=== PATIENT | female | born 1990 | race Caucasian/White ===

== ENCOUNTER 2018-11-09 12:14 | Inpatient (IN) | payer OTHER ==
[2018-11-09] MEDS ORDERED: ZOLPIDEM 5 MG TAB PO (14:00)
[2018-11-09] MEDS ORDERED: NACL 0.9% 3 ML SYG IV (14:00)
[2018-11-09] MEDS: SOD CHLORIDE 0.9% 1,000 ML IV (14:29)
[2018-11-09] MEDS ORDERED: KETOROLAC 15 MG INJ IV (15:30)
[2018-11-09] MEDS: FAMOTIDINE 20 MG INJ IV (21:54)
[2018-11-10] MEDS: SOD CHLORIDE 0.9% 1,000 ML IV ×3 (03:19→16:24)
[2018-11-10 06:15] LABS: ADD MAN DIFF? NO
[2018-11-10 06:29] LABS: WHITE BLOOD COUNT 2.8 10^3/ul (4.8-10.8)
[2018-11-10 06:29] LABS: BASOPHILS % 0.7 % (0.0-2.0); EOSINOPHILS % 1.4 % (0.0-7.0); HEMATOCRIT 37.7 % (37.0-47.0); HEMOGLOBIN 12.4 g/dl (12.0-16.0); LYMPHOCYTES # 1.3 10^3/ul (0.8-2.9); LYMPHOCYTES % 45.3 % (15.0-51.0); MEAN CORPUSCULAR HEMOGLOBIN 28.7 pg (29.0-33.0); MEAN CORPUSCULAR HGB CONC 32.9 g/dl (32.0-37.0); MEAN CORPUSCULAR VOLUME 87.3 fl (82.0-101.0); MEAN PLATELET VOLUME 11.4 fl (7.4-10.4); MONOCYTE # 0.4 10^3/ul (0.3-0.9); MONOCYTES % 14.4 % (0.0-11.0); NEUTROPHIL # 1.1 10^3/ul (1.6-7.5); NEUTROPHILS % 38.2 % (39.0-77.0); PLATELET COUNT 222 10^3/UL (140-415); RED BLOOD COUNT 4.32 10^6/ul (4.20-5.40); RED CELL DISTRIBUTION WIDTH 13.1 % (11.5-14.5)
[2018-11-10 06:37] LABS: HEMOGLOBIN A1C 5.1 % (0-5.9)
[2018-11-10 06:47] LABS: ALANINE AMINOTRANSFERASE 572 IU/L (13-69); ALBUMIN 3.5 g/dl (3.3-4.9); ALBUMIN/GLOBULIN RATIO 0.94; ALKALINE PHOSPHATASE 260 IU/L (42-121); ANION GAP 9 (5-13); ASPARTATE AMINO TRANSFERASE 719 IU/L (15-46); BILIRUBIN,INDIRECT 0.8 mg/dl (0-1.1); BILIRUBIN,TOTAL 1.4 mg/dl (0.2-1.3); BLOOD UREA NITROGEN 7 mg/dl (7-20); CALCIUM 8.8 mg/dl (8.4-10.2); CARBON DIOXIDE 24 mmol/L (21-31); CHLORIDE 110 mmol/L (97-110); CREATININE 0.58 mg/dl (0.44-1.00); Estimated GFR > 60 mL/min (>60); GLUCOSE 86 mg/dl (70-220); PHOSPHORUS 3.9 mg/dl (2.5-4.9); POTASSIUM 3.9 mmol/L (3.5-5.1); SODIUM 143 mmol/L (135-144); TOTAL PROTEIN 7.2 g/dl (6.1-8.1)
[2018-11-10] MEDS: FAMOTIDINE 20 MG INJ IV ×2 (08:09→20:28)
[2018-11-10] MEDS: ACETAMINOPHEN 325 MG TAB PO (11:27)
[2018-11-10] MEDS: ONDANSETRON 4 MG TAB PO (13:57)
[2018-11-11] MEDS: SOD CHLORIDE 0.9% 1,000 ML IV ×3 (02:07→23:19)
[2018-11-11 05:22] LABS: ADD MAN DIFF? NO
[2018-11-11 05:24] LABS: WHITE BLOOD COUNT 4.7 10^3/ul (4.8-10.8)
[2018-11-11 05:24] LABS: BASOPHILS % 0.2 % (0.0-2.0); EOSINOPHILS # 0.1 10^3/ul (0.0-0.5); EOSINOPHILS % 1.1 % (0.0-7.0); HEMATOCRIT 36.2 % (37.0-47.0); HEMOGLOBIN 11.9 g/dl (12.0-16.0); LYMPHOCYTES # 1.5 10^3/ul (0.8-2.9); LYMPHOCYTES % 32.5 % (15.0-51.0); MEAN CORPUSCULAR HEMOGLOBIN 29.1 pg (29.0-33.0); MEAN CORPUSCULAR HGB CONC 32.9 g/dl (32.0-37.0); MEAN CORPUSCULAR VOLUME 88.5 fl (82.0-101.0); MONOCYTE # 0.5 10^3/ul (0.3-0.9); MONOCYTES % 9.8 % (0.0-11.0); NEUTROPHIL # 2.7 10^3/ul (1.6-7.5); NEUTROPHILS % 56.4 % (39.0-77.0); PLATELET COUNT 218 10^3/UL (140-415); RED BLOOD COUNT 4.09 10^6/ul (4.20-5.40); RED CELL DISTRIBUTION WIDTH 13.4 % (11.5-14.5)
[2018-11-11 06:22] LABS: ALANINE AMINOTRANSFERASE 437 IU/L (13-69); ALBUMIN 3.4 g/dl (3.3-4.9); ALBUMIN/GLOBULIN RATIO 0.87; ALKALINE PHOSPHATASE 264 IU/L (42-121); ANION GAP 8 (5-13); ASPARTATE AMINO TRANSFERASE 276 IU/L (15-46); BILIRUBIN,INDIRECT 0.5 mg/dl (0-1.1); BILIRUBIN,TOTAL 0.5 mg/dl (0.2-1.3); BLOOD UREA NITROGEN 4 mg/dl (7-20); CALCIUM 8.9 mg/dl (8.4-10.2); CARBON DIOXIDE 25 mmol/L (21-31); CHLORIDE 112 mmol/L (97-110); CREATININE 0.63 mg/dl (0.44-1.00); Estimated GFR > 60 mL/min (>60); GLUCOSE 86 mg/dl (70-220); POTASSIUM 4.2 mmol/L (3.5-5.1); SODIUM 145 mmol/L (135-144); TOTAL PROTEIN 7.3 g/dl (6.1-8.1)
[2018-11-11] MEDS ORDERED: LIDOCAINE 2% (SDV) 5 ML INJ (07:00)
[2018-11-11] MEDS: FAMOTIDINE 20 MG INJ IV ×2 (08:38→20:44)
[2018-11-11] MEDS ORDERED: PROPOFOL 100 ML (14:59)
[2018-11-11] MEDS ORDERED: ROCURONIUM 50 MG INJ (15:02)
[2018-11-11] MEDS ORDERED: CEFAZOLIN 1 GM INJ (15:09)
[2018-11-11] MEDS ORDERED: DEXAMETHASONE 4 MG/ML 5 ML INJ (15:12)
[2018-11-11] MEDS ORDERED: ONDANSETRON 4 MG INJ (15:12)
[2018-11-11] MEDS: BUPIVACAINE 0.5%/EPI (SDV) 30 ML INJ (15:25)
[2018-11-11] MEDS ORDERED: NEOSTIGMINE 3 MG/3 ML SYRINGE (15:58)
[2018-11-11] MEDS ORDERED: GLYCOPYRROLATE 0.4 MG INJ (15:58)
[2018-11-11] MEDS ORDERED: SUCCINYLCHOLINE CHLORIDE 100 MG/5 ML SYG IV ×2 (16:10→16:27)
[2018-11-11] MEDS ORDERED: ALBUTEROL 0.083% (NEB) 2.5 MG/3 ML AMP HHN (17:00)
[2018-11-11] MEDS ORDERED: FENTAnyl 50 MCG/ML VIAL IV ×3 (17:00)
[2018-11-11] MEDS ORDERED: ONDANSETRON 4 MG INJ IV (17:00)
[2018-11-11] MEDS ORDERED: DIPHENHYDRAMINE 50 MG INJ IV (17:00)
[2018-11-11] MEDS ORDERED: HYDROmorphONE 1 MG/5 ML IV SYRINGE IV ×2 (17:00)
[2018-11-11] MEDS ORDERED: LABETALOL HCL 20MG INJ IV (17:00)
[2018-11-11] MEDS ORDERED: METOCLOPRAMIDE 10 MG INJ IV (17:00)
[2018-11-11] MEDS ORDERED: hydrALAzine 20 MG INJ IV (17:00)
[2018-11-11] MEDS ORDERED: EPHEDrine SULFATE 50 MG/5 ML SYG IV (17:00)
[2018-11-11] MEDS: MEPERIDINE 25 MG INJ IV (17:04)
[2018-11-11] MEDS: HYDROmorphONE 1 MG/5 ML IV SYRINGE IV ×2 (17:19→17:37)
[2018-11-11 17:40] LABS: ADD MAN DIFF? NO
[2018-11-11 17:44] LABS: WHITE BLOOD COUNT 12.2 10^3/ul (4.8-10.8)
[2018-11-11 17:45] LABS: BASOPHILS % 0.2 % (0.0-2.0); EOSINOPHILS % 0.2 % (0.0-7.0); HEMATOCRIT 36.3 % (37.0-47.0); HEMOGLOBIN 11.4 g/dl (12.0-16.0); LYMPHOCYTES # 1.7 10^3/ul (0.8-2.9); LYMPHOCYTES % 13.6 % (15.0-51.0); MEAN CORPUSCULAR HEMOGLOBIN 28.4 pg (29.0-33.0); MEAN CORPUSCULAR HGB CONC 31.4 g/dl (32.0-37.0); MEAN CORPUSCULAR VOLUME 90.5 fl (82.0-101.0); MONOCYTE # 0.2 10^3/ul (0.3-0.9); MONOCYTES % 1.8 % (0.0-11.0); NEUTROPHIL # 10.2 10^3/ul (1.6-7.5); NEUTROPHILS % 83.5 % (39.0-77.0); PLATELET COUNT 192 10^3/UL (140-415); RED BLOOD COUNT 4.01 10^6/ul (4.20-5.40); RED CELL DISTRIBUTION WIDTH 13.2 % (11.5-14.5)
[2018-11-11] MEDS: morphine 2 MG INJ IV (22:29)
[2018-11-12] MEDS: HYDROmorphONE 1 MG/ML SYG IV (01:31)
[2018-11-12] MEDS: HYDROCODONE/APAP (5/325) TAB PO ×4 (02:32→21:50)
[2018-11-12 05:56] LABS: ADD MAN DIFF? NO
[2018-11-12 06:01] LABS: BASOPHILS % 0.1 % (0.0-2.0); HEMATOCRIT 31.1 % (37.0-47.0); HEMOGLOBIN 10.1 g/dl (12.0-16.0); LYMPHOCYTES # 1.3 10^3/ul (0.8-2.9); LYMPHOCYTES % 17.1 % (15.0-51.0); MEAN CORPUSCULAR HEMOGLOBIN 29.4 pg (29.0-33.0); MEAN CORPUSCULAR HGB CONC 32.5 g/dl (32.0-37.0); MEAN CORPUSCULAR VOLUME 90.4 fl (82.0-101.0); MEAN PLATELET VOLUME 11.2 fl (7.4-10.4); MONOCYTE # 0.5 10^3/ul (0.3-0.9); MONOCYTES % 6.4 % (0.0-11.0); NEUTROPHIL # 5.5 10^3/ul (1.6-7.5); NEUTROPHILS % 75.9 % (39.0-77.0); PLATELET COUNT 201 10^3/UL (140-415); RED BLOOD COUNT 3.44 10^6/ul (4.20-5.40); RED CELL DISTRIBUTION WIDTH 13.1 % (11.5-14.5)
[2018-11-12 06:01] LABS: WHITE BLOOD COUNT 7.3 10^3/ul (4.8-10.8)
[2018-11-12 06:37] LABS: ALANINE AMINOTRANSFERASE 267 IU/L (13-69); ALBUMIN 3.3 g/dl (3.3-4.9); ALBUMIN/GLOBULIN RATIO 0.97; ALKALINE PHOSPHATASE 207 IU/L (42-121); ANION GAP 8 (5-13); ASPARTATE AMINO TRANSFERASE 120 IU/L (15-46); BILIRUBIN,INDIRECT 0.2 mg/dl (0-1.1); BILIRUBIN,TOTAL 0.2 mg/dl (0.2-1.3); BLOOD UREA NITROGEN 5 mg/dl (7-20); CALCIUM 8.8 mg/dl (8.4-10.2); CARBON DIOXIDE 25 mmol/L (21-31); CHLORIDE 108 mmol/L (97-110); CREATININE 0.55 mg/dl (0.44-1.00); Estimated GFR > 60 mL/min (>60); GLUCOSE 93 mg/dl (70-220); POTASSIUM 4.3 mmol/L (3.5-5.1); SODIUM 141 mmol/L (135-144); TOTAL PROTEIN 6.7 g/dl (6.1-8.1)
[2018-11-12] MEDS: FAMOTIDINE 20 MG INJ IV ×2 (08:43→20:20)
[2018-11-12] MEDS: SOD CHLORIDE 0.9% 1,000 ML IV ×2 (09:51→20:20)
[2018-11-13] MEDS: SOD CHLORIDE 0.9% 1,000 ML IV ×3 (06:26→18:53)
[2018-11-13] MEDS: HYDROCODONE/APAP (5/325) TAB PO (07:04)
[2018-11-13 07:21] LABS: ADD MAN DIFF? NO
[2018-11-13 07:26] LABS: BASOPHILS % 0.2 % (0.0-2.0); EOSINOPHILS % 0.5 % (0.0-7.0); HEMATOCRIT 29.2 % (37.0-47.0); HEMOGLOBIN 9.4 g/dl (12.0-16.0); LYMPHOCYTES # 1.8 10^3/ul (0.8-2.9); LYMPHOCYTES % 29.3 % (15.0-51.0); MEAN CORPUSCULAR HEMOGLOBIN 28.7 pg (29.0-33.0); MEAN CORPUSCULAR HGB CONC 32.2 g/dl (32.0-37.0); MEAN PLATELET VOLUME 11.6 fl (7.4-10.4); MONOCYTE # 0.6 10^3/ul (0.3-0.9); MONOCYTES % 10.4 % (0.0-11.0); NEUTROPHIL # 3.6 10^3/ul (1.6-7.5); NEUTROPHILS % 59.3 % (39.0-77.0); PLATELET COUNT 191 10^3/UL (140-415); RED BLOOD COUNT 3.28 10^6/ul (4.20-5.40); RED CELL DISTRIBUTION WIDTH 13.4 % (11.5-14.5)
[2018-11-13 07:55] LABS: ALANINE AMINOTRANSFERASE 168 IU/L (13-69); ALBUMIN 3.1 g/dl (3.3-4.9); ALBUMIN/GLOBULIN RATIO 0.93; ALKALINE PHOSPHATASE 160 IU/L (42-121); ANION GAP 4 (5-13); ASPARTATE AMINO TRANSFERASE 65 IU/L (15-46); BILIRUBIN,INDIRECT 0.1 mg/dl (0-1.1); BILIRUBIN,TOTAL 0.1 mg/dl (0.2-1.3); BLOOD UREA NITROGEN 4 mg/dl (7-20); CALCIUM 8.5 mg/dl (8.4-10.2); CARBON DIOXIDE 27 mmol/L (21-31); CHLORIDE 111 mmol/L (97-110); CREATININE 0.49 mg/dl (0.44-1.00); Estimated GFR > 60 mL/min (>60); GLUCOSE 82 mg/dl (70-220); POTASSIUM 3.7 mmol/L (3.5-5.1); SODIUM 142 mmol/L (135-144); TOTAL PROTEIN 6.4 g/dl (6.1-8.1)
[2018-11-13 07:56] LABS: PHOSPHORUS 3.5 mg/dl (2.5-4.9)
[2018-11-13 07:56] LABS: MAGNESIUM 1.9 mg/dl (1.7-2.5)
[2018-11-13] MEDS: FAMOTIDINE 20 MG INJ IV ×2 (08:20→21:29)
[2018-11-13] MEDS: ACETAMINOPHEN 325 MG TAB PO (18:53)
[2018-11-13] MEDS ORDERED: morphine LIQ (10 MG/5 ML) CUP PO (23:30)
[2018-11-14] MEDS: SOD CHLORIDE 0.9% 1,000 ML IV (05:04)
[2018-11-14 06:24] LABS: ADD MAN DIFF? NO
[2018-11-14 06:28] LABS: WHITE BLOOD COUNT 4.8 10^3/ul (4.8-10.8)
[2018-11-14 06:28] LABS: BASOPHILS % 0.2 % (0.0-2.0); EOSINOPHILS # 0.1 10^3/ul (0.0-0.5); EOSINOPHILS % 1.5 % (0.0-7.0); HEMATOCRIT 27.9 % (37.0-47.0); LYMPHOCYTES # 1.6 10^3/ul (0.8-2.9); LYMPHOCYTES % 32.8 % (15.0-51.0); MEAN CORPUSCULAR HEMOGLOBIN 28.5 pg (29.0-33.0); MEAN CORPUSCULAR HGB CONC 32.3 g/dl (32.0-37.0); MEAN CORPUSCULAR VOLUME 88.3 fl (82.0-101.0); MEAN PLATELET VOLUME 10.7 fl (7.4-10.4); MONOCYTE # 0.5 10^3/ul (0.3-0.9); MONOCYTES % 10.3 % (0.0-11.0); NEUTROPHIL # 2.6 10^3/ul (1.6-7.5); NEUTROPHILS % 54.8 % (39.0-77.0); PLATELET COUNT 178 10^3/UL (140-415); RED BLOOD COUNT 3.16 10^6/ul (4.20-5.40); RED CELL DISTRIBUTION WIDTH 13.2 % (11.5-14.5)
[2018-11-14 06:43] LABS: ALANINE AMINOTRANSFERASE 119 IU/L (13-69); ALBUMIN/GLOBULIN RATIO 0.93; ALKALINE PHOSPHATASE 141 IU/L (42-121); ANION GAP 6 (5-13); ASPARTATE AMINO TRANSFERASE 43 IU/L (15-46); BILIRUBIN,INDIRECT 0.2 mg/dl (0-1.1); BILIRUBIN,TOTAL 0.2 mg/dl (0.2-1.3); BLOOD UREA NITROGEN 2 mg/dl (7-20); CALCIUM 8.5 mg/dl (8.4-10.2); CARBON DIOXIDE 27 mmol/L (21-31); CHLORIDE 111 mmol/L (97-110); CREATININE 0.51 mg/dl (0.44-1.00); Estimated GFR > 60 mL/min (>60); GLUCOSE 84 mg/dl (70-220); POTASSIUM 3.4 mmol/L (3.5-5.1); SODIUM 144 mmol/L (135-144); TOTAL PROTEIN 6.2 g/dl (6.1-8.1)
[2018-11-14 07:04] LABS: MAGNESIUM 1.9 mg/dl (1.7-2.5)
[2018-11-14 07:04] LABS: PHOSPHORUS 3.9 mg/dl (2.5-4.9)
[2018-11-14] MEDS: FAMOTIDINE 20 MG INJ IV (09:41)
[2018-11-14 10:26] LABS: IRON 23 ug/dl (35-150)
[2018-11-14 10:35] LABS: % IRON SATURATION 8 % SAT (22-52); TOTAL IRON BINDING CAPACITY 276 ug/dl (241-421)
[2018-11-14] MEDS: POTASSIUM CHLORIDE (SR) 10 MEQ TAB PO (11:34)
[2018-11-14 11:47] LABS: FERRITIN 16.7 ng/ml (6.2-137.0)
== END 2018-11-14 12:40 | disposition home or self-care (01) | DRG 419 ==
LOC: PP2 11-10 11:10
PROC: 0FT44ZZ Resection of Gallbladder, Percutaneous Endoscopic Approach (ICD-10-PCS; principal; 2018-11-11 14:30)
DX: K80.00 Calculus of gallbladder with acute cholecystitis without obstruction (principal); D64.9 Anemia, unspecified
CPT/HCPCS: 74181; 80053; 82728; 83036; 83540; 83735; 84100; 85025; 88304